=== PATIENT | male | born 1975 | race Caucasian/White ===

== ENCOUNTER 2018-05-14 10:40 | Emergency (ER) | payer OTHER ==
[~2018-05-14] VITALS: Ht 180.3 cm; Wt 90.7 kg
[~2018-05-14 10:40] MED LIST: ALBU90OI6; BISM300CH PO; GABA100 PO; HYDACE5 PO; IBUP800 PO; KETO10 PO; METR250 PO; NAPR550 PO; Naprosyn500 MG PO; Norco 5-325 Ta1 EACH PO; OMEP20ER PO; OXYACE5T PO; OXYC10ER PO; Percocet 5-3251 EACH PO; RXMETA800 PO; RXNAPNA550 PO; TETR250 PO; Zofran Odt4 MG SL
== END 2018-05-14 12:02 | disposition home or self-care (01) ==
LOC: ER 10:40
DX: S16.1XXA Strain of muscle, fascia and tendon at neck level, initial encounter (principal); S40.011A Contusion of right shoulder, initial encounter; F17.210 Nicotine dependence, cigarettes, uncomplicated; Z88.0 Allergy status to penicillin; V49.9XXA Car occupant (driver) (passenger) injured in unspecified traffic accident, initial encounter
CPT/HCPCS: 72040; 73030; 99284-25; L0160

== ENCOUNTER → 2020-02-28 | Outpatient (CLI) | payer OTHER ==
[2020-02-28 20:21] LABS: BASOPHILS ABSOLUTE AUTO 0.04 K/mm3 (0.00-0.23); BASOPHILS PERCENT AUTO 1 % (0-2); EOSINOPHILS ABSOLUTE AUTO 0.28 K/mm3 (0.00-0.68); EOSINOPHILS PERCENT AUTO 4 % (0-6); Hematocrit 48.2 % (37.0-53.0); Hemoglobin 15.4 g/dL (13.5-17.5); IMMATURE GRAN ABSOLUTE AUTO 0.02 K/mm3 (0.00-0.10); IMMATURE GRAN PERCENT AUTO 0 % (0-1); LYMPHOCYTES ABSOLUTE AUTO 1.92 K/mm3 (0.84-5.20); LYMPHOCYTES PERCENT AUTO 30 % (21-46); MONOCYTES ABSOLUTE AUTO 0.63 K/mm3 (0.16-1.47); MONOCYTES PERCENT AUTO 10 % (4-13); Mean Corpuscular HGB 29.3 pg (26.0-34.0); Mean Corpuscular Volume 92 fL (80-100); Mean Platelet Volume 9.4 fL (9.1-12.4); NEUTROPHILS ABSOLUTE AUTO 3.45 K/mm3 (1.96-9.15); NEUTROPHILS PERCENT AUTO 55 % (41-73); Platelet Count 269 K/mm3 (150-400); RDW Coefficient Variation 12.9 % (11.7-14.2); RDW Standard Deviation 43.6 fL (35.1-46.3); Red Blood Cell Count 5.26 M/mm3 (4.30-5.90); White Blood Cell Count 6.34 K/mm3 (4.00-11.30)
[2020-02-28 20:40] LABS: Alanine Aminotransfer (ALT/SGP 36 U/L (12-78); Albumin/Globulin Ratio 1.2 (0.8-1.8); Alk Phos 75 U/L (50-136); Anion Gap 7 mmol/L (6-16); Aspartate Aminotrans (AST/SGOT 23 U/L (12-37); Bilirubin, Total 0.3 mg/dL (0.1-1.0); Blood Urea Nitrogen 18 mg/dL (8-24); Bun/Creatinine Ratio 18.5 (12.0-20.0); CHOL/HDL RATIO 7.8; CO2, Blood 22 mmol/L (21-32); Calcium, Blood 8.8 mg/dL (8.5-10.1); Chloride, Blood 109 mmol/L (98-108); Cholesterol 264 mg/dL (50-200); Creatinine, Blood 0.97 mg/dL (0.60-1.20); Globulin, Blood 3.2 g/dL (2.2-4.0); Glomerular Filtration Rate >60 (60-); Glucose, Blood 126 mg/dL (70-99); HDL Cholesterol 34 mg/dL (>39); LDL/HDL RATIO 5.6; Low Density Lipoprotein Chol 191 mg/dL (0-110); Potassium, Blood 4.2 mmol/L (3.5-5.5); Sodium, Blood 138 mmol/L (136-145); Total Protein, Blood 7.2 g/dL (6.4-8.2); Triglycerides 194 mg/dL (30-160); Very Low Density Lipoprot Chol 38 mg/dL (6-32)
== END | disposition home or self-care (01) ==
LOC: LAB SHORT 08:40 → LAB 08:40
PROVIDERS: Nurse Practitioner Family
DX: Z11.59 Encounter for screening for other viral diseases (principal); E78.00 Pure hypercholesterolemia, unspecified; E03.9 Hypothyroidism, unspecified; E55.9 Vitamin D deficiency, unspecified
CPT/HCPCS: 80053; 80061; 82306; 84443; 85025; 86803

== ENCOUNTER 2021-04-01 21:28 | Emergency (ER) | payer OTHER ==
[~2021-04-01] VITALS: Ht 180.3 cm; Wt 95.2 kg
== END 2021-04-02 00:59 | disposition home or self-care (01) ==
LOC: ER 21:28
DX: S01.112A Laceration without foreign body of left eyelid and periocular area, initial encounter (principal); W22.8XXA Striking against or struck by other objects, initial encounter; F17.210 Nicotine dependence, cigarettes, uncomplicated; Z88.0 Allergy status to penicillin
CPT/HCPCS: 10120; 12011; 70200; 99282-25

== ENCOUNTER 2021-05-11 16:01 | Emergency (ER) | payer OTHER ==
[~2021-05-11] VITALS: Ht 180.3 cm; Wt 94.3 kg
[2021-05-11 17:00] LABS: BASOPHILS ABSOLUTE AUTO 0.06 K/mm3 (0.00-0.23); BASOPHILS PERCENT AUTO 1 % (0-2); EOSINOPHILS PERCENT AUTO 3 % (0-6); Hematocrit 44.7 % (37.0-53.0); Hemoglobin 15.3 g/dL (13.5-17.5); IMMATURE GRAN ABSOLUTE AUTO 0.02 K/mm3 (0.00-0.10); IMMATURE GRAN PERCENT AUTO 0 % (0-1); LYMPHOCYTES ABSOLUTE AUTO 2.27 K/mm3 (0.84-5.20); LYMPHOCYTES PERCENT AUTO 25 % (21-46); MONOCYTES ABSOLUTE AUTO 0.95 K/mm3 (0.16-1.47); MONOCYTES PERCENT AUTO 11 % (4-13); Mean Corpuscular HGB 29.5 pg (26.0-34.0); Mean Corpuscular HGB Conc 34.2 g/dL (31.5-36.5); Mean Corpuscular Volume 86 fL (80-100); Mean Platelet Volume 8.9 fL (9.1-12.4); NEUTROPHILS ABSOLUTE AUTO 5.42 K/mm3 (1.96-9.15); NEUTROPHILS PERCENT AUTO 60 % (41-73); Platelet Count 224 K/mm3 (150-400); RDW Coefficient Variation 12.1 % (11.7-14.2); RDW Standard Deviation 38.1 fL (35.1-46.3); Red Blood Cell Count 5.19 M/mm3 (4.30-5.90); White Blood Cell Count 9.02 K/mm3 (4.00-11.30)
[2021-05-11 17:22] LABS: Alanine Aminotransfer (ALT/SGP 31 U/L (12-78); Albumin, Blood 4.2 g/dL (3.4-5.0); Albumin/Globulin Ratio 1.3 (0.8-1.8); Alk Phos 77 U/L (50-136); Anion Gap 5 mmol/L (6-16); Aspartate Aminotrans (AST/SGOT 15 U/L (12-37); Bilirubin, Total 0.4 mg/dL (0.1-1.0); Blood Urea Nitrogen 20 mg/dL (8-24); Bun/Creatinine Ratio 18.2 (12.0-20.0); CO2, Blood 24 mmol/L (21-32); Calcium, Blood 9.2 mg/dL (8.5-10.1); Chloride, Blood 108 mmol/L (98-108); Globulin, Blood 3.3 g/dL (2.2-4.0); Glomerular Filtration Rate >60 (60-); Glucose, Blood 108 mg/dL (70-99); Sodium, Blood 137 mmol/L (136-145); Total Protein, Blood 7.5 g/dL (6.4-8.2)
[2021-05-11 17:24] LABS: Troponin I <0.015 ng/mL (0.000-0.040)
[2021-05-11 17:55] LABS: International Normalized Ratio 0.94; Prothrombin Time Results 10.2 Sec (9.7-11.5)
[2021-05-11] MEDS ORDERED: AZIT250 PO (18:23)
[2021-05-11 18:35] LABS: SARS-Cov-2 (COVID-19) PCR, MMC NEGATIVE (NEGATIVE)
== END 2021-05-11 19:42 | disposition home or self-care (01) ==
LOC: ER 16:01
PROVIDERS: Emergency Medicine Emergency Medical Services
DX: J18.9 Pneumonia, unspecified organism (principal); F17.210 Nicotine dependence, cigarettes, uncomplicated; Z20.822 Contact with and (suspected) exposure to COVID-19; Z88.0 Allergy status to penicillin
CPT/HCPCS: 36415; 71045; 80053; 84484; 85025; 85610; 93005; 93010; 99283-25; U0004

== ENCOUNTER 2021-09-02 10:39 | Emergency (ER) | payer OTHER ==
[~2021-09-02] VITALS: Ht 180.3 cm; Wt 93.0 kg
[~2021-09-02 10:39] MED LIST changes: +AZIT250 PO
== END 2021-09-02 13:47 | disposition home or self-care (01) ==
LOC: ER 10:39
DX: S46.912A Strain of unspecified muscle, fascia and tendon at shoulder and upper arm level, left arm, initial encounter (principal); W01.198A Fall on same level from slipping, tripping and stumbling with subsequent striking against other object, initial encounter; Y99.0 Civilian activity done for income or pay; Z88.0 Allergy status to penicillin; F17.210 Nicotine dependence, cigarettes, uncomplicated
CPT/HCPCS: 73030; 99283-25

== ENCOUNTER 2022-05-13 11:14 | Day surgery (SDC) | payer OTHER ==
[~2022-05-13] VITALS: Ht 180.3 cm; Wt 94.9 kg
[2022-05-13] MEDS ORDERED: PROAIR DIGIHAL90 MCG (12:09)
[2022-05-13] MEDS ORDERED: OMEP20ER (12:09)
[2022-05-13] MEDS ORDERED: GABA100 (12:09)
[2022-05-13] MEDS ORDERED: LEVSOD88 (12:09)
[2022-05-13] MEDS ORDERED: MELO7.5 (12:09)
--- NOTE | 2022-05-13 12:25 | NUR ---
05/13/22 1225 Pretty [place] for prp, anticoagulant is added and specimen is delivered to the or and spun down.
--- NOTE | 2022-05-13 13:48 | NUR ---
05/13/22 1348 TRUDY NAGY 10MLS OF LIDOCAINE 2% WITH EPI 1:100,000 INJECTED INTO L SHOULDER BY DR DRUMMOND
--- NOTE | 2022-05-13 15:42 | NUR ---
05/13/22 1542 Shabana Tim PT.VERBALIZES CAN'T BREATHE. PT. REQUESTING O2 EVEN THOUGH SATS 95%. O2 PLACED AT VIA FACE TENT, PT.KEPT ASKING FOR OXYGEN.
--- NOTE | 2022-05-13 16:02 | NUR ---
05/13/22 1602 TimShabana Angelina PT. ANXIOUS, ASKING FOR HIS , KEPT TELLING PT. WE WOULD GET HIS . AT SIDE. PT. ASKING FOR HIS INHALER, INSTRUCTED PT. THAT WE HAD ORDERS TO GIVE HIM AN ALBUTEROL NEBULIZER. PT. DID C/O OF FEELING HER COULDN'T BREATHE, SATS 100% ON FACE TENT, EAR PROBE ON RIGHT EAR, PICKS UP BETTER THAN FINGER O2 SAT. PT. VERBALIZED FEELING LIKE AN ELEPHANT ON HIS CHEST, HIS CHEST WAS HEAVY, ARM SLING AROUND WAIST WAS TIGHT, RELEASED IT & PT. VERBALIZES FEELING LOTS BETTER. PT. ALSO VERBALIZES THAT CHEST FEELING BETTER AFTER NEBULIZER TREATMENT. PT. LUNGS CLEAR. PT. ALSO VERBALIZES FEELING LIKE THE BACK OF HIS THROAT/TOP OF MOUTH WAS SORE. PT. INSTRUCTED IT WAS PROBABLY FROM HIS AIRWAY & HE MAY HAVE THAT FEELING FOR A COUPLE OF DAYS BUT SHOULD GET BETTER. PT. VERBALIZES NOT LIKING HOW HIS LEFT ARM FELT FROM THE BLOCK, INSTRUCTED PT. THAT HIS ARM COULD FEEL NUMB UP TO 24 HOURS. PT. VERBALIZES THAT HIS THUMB FEELS NUMB, PT. INSTRUCTED THAT THAT WAS PART OF THE BLOCK. ALSO PT. WAS INSTRUCTED THAT HIS FEELING OF NOT BEING ABLE TO BREATHE COULD BE FROM THE BLOCK ALSO. PT. DID C/O HAVING A HEADACHE.
== END 2022-05-13 16:20 | disposition home or self-care (01) ==
LOC: ORSCSDS 11:14
PROVIDERS: Orthopaedic Surgery
PROC: 0RNK4ZZ Release Left Shoulder Joint, Percutaneous Endoscopic Approach (ICD-10-PCS; principal; 2022-05-13 13:00)
PROC: 0LS44ZZ Reposition Left Upper Arm Tendon, Percutaneous Endoscopic Approach (ICD-10-PCS; principal; 2022-05-13 13:00)
PROC: 0LM24ZZ Reattachment of Left Shoulder Tendon, Percutaneous Endoscopic Approach (ICD-10-PCS; principal; 2022-05-13 13:00)
PROC: 0RBK4ZZ Excision of Left Shoulder Joint, Percutaneous Endoscopic Approach (ICD-10-PCS; principal; 2022-05-13 13:00)
DX: M75.122 Complete rotator cuff tear or rupture of left shoulder, not specified as traumatic (principal); M75.42 Impingement syndrome of left shoulder; M75.22 Bicipital tendinitis, left shoulder; J45.909 Unspecified asthma, uncomplicated; F17.210 Nicotine dependence, cigarettes, uncomplicated; E03.9 Hypothyroidism, unspecified; Z79.899 Other long term (current) drug therapy
CPT/HCPCS: C1713; J0171; J1100; J2250; J2405; J2704; J3010; J7120

== ENCOUNTER 2023-05-07 18:40 | Emergency (ER) | payer OTHER ==
[~2023-05-07] VITALS: Ht 180.3 cm; Wt 94.8 kg
[~2023-05-07 18:40] MED LIST changes: +GABA100; +LEVSOD88; +MELO7.5; +OMEP20ER; +PROAIR DIGIHAL90 MCG
[2023-05-07 20:55] LABS: BASOPHILS ABSOLUTE AUTO 0.05 K/mm3 (0.00-0.23); BASOPHILS PERCENT AUTO 1 % (0-2); EOSINOPHILS ABSOLUTE AUTO 0.54 K/mm3 (0.00-0.68); EOSINOPHILS PERCENT AUTO 7 % (0-6); Hematocrit 45.4 % (37.0-53.0); Hemoglobin 15.7 g/dL (13.5-17.5); IMMATURE GRAN ABSOLUTE AUTO 0.04 K/mm3 (0.00-0.10); IMMATURE GRAN PERCENT AUTO 1 % (0-1); LYMPHOCYTES ABSOLUTE AUTO 2.71 K/mm3 (0.84-5.20); LYMPHOCYTES PERCENT AUTO 36 % (21-46); MONOCYTES ABSOLUTE AUTO 0.87 K/mm3 (0.16-1.47); MONOCYTES PERCENT AUTO 12 % (4-13); Mean Corpuscular HGB 30.5 pg (26.0-34.0); Mean Corpuscular HGB Conc 34.6 g/dL (31.5-36.5); Mean Corpuscular Volume 88 fL (80-100); Mean Platelet Volume 8.6 fL (9.1-12.4); NEUTROPHILS ABSOLUTE AUTO 3.37 K/mm3 (1.96-9.15); NEUTROPHILS PERCENT AUTO 44 % (41-73); Platelet Count 260 K/mm3 (150-400); RDW Coefficient Variation 12.5 % (11.7-14.2); Red Blood Cell Count 5.14 M/mm3 (4.30-5.90); White Blood Cell Count 7.58 K/mm3 (4.00-11.30)
[2023-05-07 21:21] LABS: Albumin, Blood 3.7 g/dL (3.4-5.0); Albumin/Globulin Ratio 1.2 (0.8-1.8); Bilirubin, Total 0.3 mg/dL (0.1-1.0); Bun/Creatinine Ratio 11.8 (12.0-20.0); Calcium, Blood 8.6 mg/dL (8.5-10.1); Creatinine, Blood 1.1 mg/dL (0.60-1.20); Free Thyroxine 0.99 ng/dL (0.70-1.60); Globulin, Blood 3.2 g/dL (2.2-4.0); Potassium, Blood 4.1 mmol/L (3.5-5.5); Thyroid Stimulating Hormone 2.02 uIU/mL (0.360-4.800); Total Protein, Blood 6.9 g/dL (6.4-8.2)
[2023-05-07 21:31] LABS: Source, Urine Clean Catch
[2023-05-07 21:34] LABS: Bilirubin, Urine Neg (Neg); Blood, Urine Neg (Neg); Glucose Qualitative, Urine Neg (Neg); Ketones, Urine Neg (Neg); Leukocyte Esterase, Urine Neg (Neg); Nitrite, Urine Neg (Neg); Protein, Urine Neg (Neg); Specific Gravity, Urine 1.025 (1.003-1.022); Urobilinogen, Urine NORM (Normal)
[2023-05-07 21:36] LABS: Appearance, Urine Clear (Clear); Color, Urine Yellow (P-Yellow)
[2023-05-07 22:13] VITALS: BP 113/78
== END 2023-05-07 22:13 | disposition home or self-care (01) ==
LOC: ER 18:40
PROVIDERS: Emergency Medicine; Student in an Organized Health Care Education/Training Program
DX: R53.1 Weakness (principal); F17.210 Nicotine dependence, cigarettes, uncomplicated; J45.909 Unspecified asthma, uncomplicated; Z88.0 Allergy status to penicillin; Z79.899 Other long term (current) drug therapy
CPT/HCPCS: 80053; 81003; 84439; 84443; 85025; 99284

== ENCOUNTER → 2024-03-16 | Outpatient (CLI) | payer OTHER | LOC: LAB SHORT 12:31 → LAB 12:31 | DX: L82.0 Inflamed seborrheic keratosis (principal); L57.0 Actinic keratosis | CPT/HCPCS: 88305 ==